=== PATIENT | male | born 1965 | race Caucasian/White ===

== ENCOUNTER → 2019-12-18 09:02 | Outpatient (CLI) | payer BC, SELFPAY ==
--- NOTE | ~2019-12-18 | MR_ITS ---
EXAMINATION: MR lumbar spine wo [facility] EXAM DATE: 12/18/2019 09:48 INDICATION: Low back pain, right hip pain. TECHNIQUE: Multi-sequential, multiplanar MR images of the lumbar spine were obtained without contrast . Sagittal T1, T2, T2 fat saturation images. Axial T2 weighted images. There is no prior study for comparison. FINDINGS: L5 laminectomy defects. There are no suspicious marrow signal abnormalities. There is moder ate loss of the L5-S1 disc heights, mild to moderate loss at L2-3 and L3-4. The conus medullaris term inates at the L1/2 level and has normal signal intensity and morphology. The vertebral bodies are al igned in the AP dimension. Paraspinal soft tissue is unremarkable. Level by level evaluation: T11-12: Disc does not extend beyond the endplate margin. Facet arthropathy: Mild to moderate. Neural foraminal stenosis: Mild bilateral. Central canal stenosis: Mild. T12-L1: Disc does not extend beyond the endplate margin. Facet arthropathy: Mild. Neural foraminal stenosis: No stenosis. Central canal stenosis: No stenosis. L1-L2: Disc does not extend beyond the endplate margin. Facet arthropathy: Mild. Neural foraminal stenosis: Minimal bilateral. Central canal stenosis: No stenosis. L2-L3: There is a mild to moderate diffuse disc bulge. Facet arthropathy: Mild to moderate. Neural foraminal stenosis: Mild to moderate bilateral. Central canal stenosis: Mild. L3-L4: There is a mild to moderate diffuse disc bulge. Facet arthropathy: Moderate . Ligamentum flavum enlargement. Neural foraminal stenosis: Mild to moderate bilateral. Central canal stenosis: Mild to moderate. L4-L5: There is a large diffuse disc bulge superimposed left central protrusion, causing mass effect in the left lateral recess. Facet arthropathy: Severe left, moderate right. Ligamentum flavum enlargement. Neural foraminal stenosis: Moderate bilateral. Central canal stenosis: Moderate to severe. Significant left lateral recess stenosis. L5-S1: There is a mild to moderate diffuse disc bulge asymmetric to the right Facet arthropathy: Severe bilateral. Neural foraminal stenosis: Moderate to severe right, moderate left. Central canal stenosis: Mild to moderate. Posterior decompression, laminectomies.. IMPRESSION: 1. L4-5 spondylosis causing moderate to severe central canal stenosis. 2. Lesser spondylosis above. Reviewed, dictated and finalized at location A.
== END ==
PROVIDERS: PCP Internal Medicine; Visit Provider Physician Assistant Medical
DX: M54.30 Sciatica, unspecified side (principal); M47.814 Spondylosis without myelopathy or radiculopathy, thoracic region
CPT/HCPCS: 72148

== ENCOUNTER 2022-02-13 00:31 | Day surgery (SDC) | payer BC, SELFPAY ==
[2022-01-29 14:29] VITALS: BMI 30.8
--- NOTE | 2022-02-12 17:52 | PM.HPGS ---
History of Present Illness History of Present Illness Consent: Risks, benefits, and alternatives have been discussed and questions answered. Patient agrees to proceed with procedure. Chief complaint: dysphagia, neoplasm screening Narrative: Jamar Alvares is a 56 year old male referred for colon cancer screening . He also has had difficulty swallowing food which seems to get caught in his throat. This began after having a neck fusion 8 years ago. Review of Systems Review of Systems: All systems reviewed & are unremarkable except as noted in HPI and below PMFSH Past Medical History Medical History Arthritis DDD (degenerative disc disease) cervical, s/p fusion 3 levels DDD (degenerative disc disease), lumbosacral Dyslipidemia Dysphagia Encounter for wellness examination in adult Headache History of kidney stones Lateral epicondylitis of right elbow Screening for colon cancer Screening PSA (prostate specific antigen) Tear of left biceps muscle Umbilical hernia Surgical History Surgical History H/O laminectomy History of fusion of cervical spine History of sinus surgery Family History Family History Father Diabetes mellitus Mother Thyroid disorder Social History Social History Smoking status: Never smoker Alcohol intake: current Drinks per week: 1 Alcohol use details: Occasional social drinker Substance use: never Substance use type: does not use Living arrangements: with family Spiritual care concerns: No Meds Home Medications and Allergies Home Medications Medication Instructions Recorded Confirmed Type gabapentin 300 mg capsule 300 mg PO BID 01/18/22 01/29/22 History naproxen 500 mg tablet 500 mg PO BID 01/18/22 01/29/22 History Allergies Allergy/AdvReac Type Severity Reaction Status Date / Time No Known Allergies Allergy Verified 02/13/22 12:10 Exam Resp: Auscultation: clear to auscultation bilaterally Cardio: Rate: regular rate Rhythm: regular rhythm GI: GI Palp: Yes Soft to palpation and No Tenderness to palpation present (GI) Assessment and Plan Assessment and plan (1) Screening for colon cancer: Code(s): Z12.11 - Encounter for screening for malignant neoplasm of colon Status: Acute Assessment and Plan: Colonoscopy with possible biopsy or polypectomy or cautery or injection of substances. (2) Dysphagia: Code(s): R13.10 - Dysphagia, unspecified Status: Acute Assessment and Plan: EGD with possible biopsy or dilatation or cautery.
[2022-02-13 12:12] VITALS: BP 163/99; PULSE 75; RESP 18; TEMP 36.1; O2SAT 95
--- NOTE | 2022-02-13 12:27 | P.PNAN_ITS ---
Anes - Initial Pre Proc Eval Procedure: Operation Date: 02/13/22 13:00 Proposed Procedures p Esophagogastroduodenoscopy & Screening Colonoscopy - Melvin Zepeda MD Date/Time: 02/13/22 12:27 Surgeon: Melvin Zepeda MD Pre Op Diagnosis: dysphagia, neoplasm screening Patient Data Age: 56 Gender: M Height: 1.78 m Weight: 95.8 kg Last Vital Signs Temp 36.1 C L 02/13/22 12:12 Pulse 75 02/13/22 12:12 Resp 18 02/13/22 12:12 BP 163/99 H 02/13/22 12:12 Pulse Ox 95 02/13/22 12:12 O2 Del Method Room Air 02/13/22 12:12 Allergies Allergy/AdvReac Type Severity Reaction Status Date / Time No Known Allergies Allergy Verified 02/13/22 12:10 Home Medications Medication Instructions Recorded Confirmed Type gabapentin 300 mg capsule 300 mg PO BID 01/18/22 01/29/22 History naproxen 500 mg tablet 500 mg PO BID 01/18/22 01/29/22 History Patient hx anesthesia problems: none Family hx anesthesia problems: none Results Review: All pre-operative results and documents have been reviewed as part of the pre- operative evaluation. [facility] Past Medical History Medical History (Updated 02/13/22 @ 14:53 by Shawn Mcleod MD) Arthritis COPD (chronic obstructive pulmonary disease) DDD (degenerative disc disease) cervical, s/p fusion 3 levels DDD (degenerative disc disease), lumbosacral Dyslipidemia Dysphagia Encounter for wellness examination in adult Headache History of kidney stones Lateral epicondylitis of right elbow Screening for colon cancer Screening PSA (prostate specific antigen) Tear of left biceps muscle Umbilical hernia Surgical History Surgical History H/O laminectomy History of fusion of cervical spine History of sinus surgery Family History Family History Father Diabetes mellitus Mother Thyroid disorder Social History Social History Smoking status: Never smoker Alcohol intake: current Drinks per week: 1 Alcohol use details: Occasional social drinker Substance use: never Substance use type: does not use Living arrangements: with family Spiritual care concerns: No Anes - Eval Final PreProcedure Day of Procedure 02/13/22 12:27 Patient weight: obese Heart: regular rate and rhythm Lungs: clear to auscultation Airway: Mallampati scale class II Neurological: alert and oriented Last oral intake: >/= 8 hours ASA classification: III Emergent: no Anesthetic plan: proceed Anesthesia type and monitoring: general GIVS and standard monitoring Other findings: late entry because chart was open by other user Results Review: All pre-operative results and documents have been reviewed as part of the pre- operative evaluation. Informed Consent: The patient's anesthetic plan and its attendant risks and benefits were discussed with the patient/family/POA. Questions were solicited and answers provided to the satisfaction of the patient/family/POA.
[2022-02-13] MEDS: LACTATED RINGERS 1,000 ML 150 ML IV CONT (12:44)
--- NOTE | 2022-02-13 14:06 | SUR.OPER ---
EGD START 1335, END 1342 COLONOSCOPY START 1349, END 1402
[2022-02-13 14:10] VITALS: BP 121/86; PULSE 69; RESP 18; O2SAT 100
[2022-02-13 14:20] VITALS: BP 119/84; PULSE 72; RESP 20; O2SAT 100
[2022-02-13 14:30] VITALS: BP 129/94; PULSE 68; RESP 18; O2SAT 99
== END 2022-02-13 14:39 | disposition home or self-care (01) ==
PROVIDERS: PCP Physician Assistant Medical; Visit Provider Internal Medicine Gastroenterology
PROC: 0DJ08ZZ Inspection of Upper Intestinal Tract, Via Natural or Artificial Opening Endoscopic (ICD-10-PCS; CPT 43235; principal; 2022-02-13 13:00)
DX: Z12.11 Encounter for screening for malignant neoplasm of colon (principal); D12.5 Benign neoplasm of sigmoid colon; K21.00 Gastro-esophageal reflux disease with esophagitis, without bleeding; K29.70 Gastritis, unspecified, without bleeding; K29.80 Duodenitis without bleeding; R13.10 Dysphagia, unspecified
CPT/HCPCS: 45385; 43239; 43450; 87081; 88305; J2704; J7120

== ENCOUNTER 2025-01-11 09:21 | Outpatient (CLI) | payer BC, SELFPAY ==
--- OUTSIDE RECORDS SUMMARY | 2023-08-06 11:00 | XMS_ITS | Continuity of Care Document ---
Author Organization [facility] Address [address] [place] [address] Phone Care Team Providers Care Automatic Bow Maker Machine Tender Name Role Phone Alejandro Singh MD Unavailable Unavailable Procedures Procedure Date INJ SPINE LUM/SAC W/ IMAGING GUIDANCE Ks SURGICAL TRAY LOW OSMOLAR CONTRAST (200 TO 299 MG IODI NE) Triamcinolone Acetonide Injection, 10mg INJ SPINE CERV/THOR W/ IMAGING GUIDANCE Triamcinolone Acetonide Injection, 10mg SURGICAL TRAY LOW OSMOLAR CONTRAST (200 TO 299 MG IODI NE) INJ SPINE CERV/THOR W/ IMAGING GUIDANCE SURGICAL TRAY LOW OSMOLAR CONTRAST (200 TO 299 MG IODI NE) Injection, Triamcinolone Acetonide, 10mg INJ SPINE LUM/SAC W/ IMAGING GUIDANCE Injection, Triamcinolone Acetonide, 10mg SURGICAL TRAY LOW OSMOLAR CONTRAST (200 TO 299 MG IODI NE) INJ SPINE LUM/SAC W/ IMAGING GUIDANCE SURGICAL TRAY LOW OSMOLAR CONTRAST (300 TO 399 MG IODI NE) Injection, Triamcinolone Acetonide, 10mg INJ SPINE CERV/THOR W/ IMAGING GUIDANCE SURGICAL TRAY Ron-28-2022 LOW OSMOLAR CONTRAST (300 TO 399 MG IODI NE) Injection, Triamcinolone Acetonide, 10mg Advance Directives Directive Yes / No Effective Date File Name No Information Encounters Encounter Description Practice Location Reason(s) For Visit Diagnoses Date Provider Providers Copied on Encounter [facility], [address] [facility], [place], [place], [id number], tel:[phone] [facility] No Information Samantha Allen. [address] [place], [place], [id number], [place]. tel:[phone] Referring Provider: Mason Amaral, [address] [place] [address], [place], [place], [facility]. tel:[phone] [facility], [address] [facility], [place], [place], [id number], tel:[phone] [facility] No Information Timi Bianchi. [address] [place], [place], [id number], [place]. tel:[phone] Referring Provider: Mason Amaral, [address] [place] [address], [place], [place], [facility]. tel:[phone] [facility], [address] [facility], [place], [place], [address], tel:[phone] [facility] No Information Radha Craig. [address] [place], [place], [id number], . tel:[phone] Referring Provider: Paramjit Rose DO, [address] [place] [address] [address], [place], [address]. tel:[phone] [facility], [address] [facility], [place], [place], [id number], [place] tel:[phone] [facility] No Information Torsten Bianchi. [address] [place], [place], [id number], [place]. tel:[phone] Referring Provider: Mason Amaral, [address] [place] [address], [place], [place], [facility]. tel:[phone] [facility], [address] [facility], [place], [place], [address], tel:[phone] [facility] No Information Torsten Bianchi. [address] [facility], [place], [place], [address], . tel:[phone] Referring Provider: Mason Amaral, [facility] , [place], [address]. tel:[phone] [facility], [address], [place], [place], [address], tel:[phone] [facility] No Information Radha Craig. [address] [place], [place], [address], . tel:[phone] Referring Provider: Paramjit Rose DO, [address], [place], [address]. tel:[phone] Family History Family Member Type Diagnosis Age At Onset No Information Payers Payer name Insurance type Covered republican ID Alin fritz(s) [facility] ACCESS CHOICE BL [id number] Social History Type Description Quantity Date Captured Comments Sex Male Smoking Status No Information Chief Complaint And Reason For Visit No Information Reason For Referral Reason For Referral No Information History Of Present Illness Encounter Date Complaint History Of Prese nt Illness No Information Functional Status Date Functional Assessmen t No Information Instructions Date Instruction Additional Infor mation No Information Assessments Type Assessment Date No Information Patient Care Teams Name Effective Dates (start - stop) Status Members No Information
--- OUTSIDE RECORDS SUMMARY | 2024-09-07 07:27 | XMS_ITS ---
Author Organization [facility] Address [address] [facility] [address] [place] [address] Care Team Providers Care Fast Food Shift Supervisor Name Role Phone Leanne Asencio Primary Care Provider Unavailab Mason Nguyen Unavailable [phone] REASON FOR VISIT SNN BUE EMG 09-07-24 Encounters Encounter Location Date Provider Diagnosis [facility] [address] [facility] [address] [place] [address] 09/07/2024 Mason Amaral PLAN OF TREATMENT No Information
--- OUTSIDE RECORDS SUMMARY | 2024-09-15 05:29 | XMS_ITS ---
Author Organization [facility] Address [address] [facility] [address] [place] [address] Care Team Providers Care Pit Tanner Name Role Phone Leanne Asencio Primary Care Provider Unavailab Mason Nguyen Unavailable [phone] REASON FOR VISIT arthritis Encounters Encounter Location Date Provider Diagnosis [facility] [address] [facility] [address] [place] [address] 09/15/2024 Mason Amaral PLAN OF TREATMENT No Information
--- OUTSIDE RECORDS SUMMARY | 2024-09-24 07:27 | XMS_ITS ---
Author Organization [facility] Address [address] [facility] [address] [place] [address] Care Team Providers Care Automotive Consultant Name Role Phone Leanne Asencio Primary Care Provider Unavailab Mason Nguyen Unavailable [phone] REASON FOR REFERRAL Reason Bilateral Carpal North cintia Diagnosis 1 Carpal tunnel syndro me (354.0) Referral Organization [facility] Referring Provider First Name Mason Referring Provider Last Name Cristin Referring Provider Speciality Orthopedic Surgery Referred Provider Bryant Gandhi Referred Provider Specialty Plastic and Reconstructive Surgery Referral Priority Routine REASON FOR VISIT Question PROBLEMS Problem Type ICD Code Onset Dates Problem Status W/U Status Risk SNOMED Code Notes Problem Carpal tunnel syndrome (354.0) Active confirmed Carpal tunnel syndrome (35074679) Encounters Encounter Location Date Provider Diagnosis [facility] [address] [facility] [address] [place] [address] 09/24/2024 Mason Amaral PLAN OF TREATMENT Referrals Referral Date Details Bilateral Carpal North cintia, Bryant Gandhi Consultation Request Notes Referral Date Referring Provider Referred Provider Not es 09/24/2024 Mason Amaral Robert Bilateral Carp al Tunnel
--- NOTE | ~2025-01-11 | NM_ITS ---
EXAMINATION: NM stress w perf spect multi DATE: 01/11/2025 11:34 INDICATION: Preoperative cardiovascular exam TECHNIQUE: Rest images were obtained following intravenous administration of 10.7 mCi Tc99m tetrofosmin ([employer]). The patient performed an exercise activity. At peak exercise, 34.2 mCi Tc99m tetrofosmin ([employer]) was administered intravenously, and stress images were obtained. Data was reconstructed into short axis and horizontal and vertical long axis SPECT images. Gated SPECT images were also obtained. COMPARISON: None. FINDINGS: There is normal left ventricular perfusion without definite evidence of reversible or fixed perfusion abnormality to suggest ischemia or infarction. There is normal left ventricular chamber size, wall motion and ejection fraction. Left ventricular ejection fraction measures 57%. IMPRESSION: 1. Normal myocardial perfusion at rest and during stress. 2. Left ventricular ejection fraction measuring 57%. Reviewed, dictated and finalized at location A.
--- NOTE | 2025-01-11 09:32 | EST_ITS ---
Patient Info Name: Jamar Alvares Age: 59 years : 1965 Gender: Male Ht: 70 in Wt: 214 lbs BSA: 2.22 m2 HR: 75 bpm BP: 116 / 78 mmHg Exam Date: 01/11/2025 9:32 AM Patient Status: O Admit Date: 01/11/2025 Exam Type: CA stress test treadmill w NM A nuclear stress test was performed. Staff Referring Physician: Christian Nye DO Attending Provider: Christian Nye DO Exercise Technologist: Zuri Lorenzo Exercise Physician: Christian Nye DO Summary 1. 1. Negative Rafael exercise stress test for ischemic ST changes by ECG criteria. 2. 2. Good functional capacity, achieving 10 METs of workload. 3. 3. Appropriate HR response to exercise. 4. 4. Appropriate HR recovery at 1 minute post exercise. 5. 5. Nuclear scan to follow and will be reported separately. Please correlate with it. 6. 6. Patient informed of the above results. Protocol: Rafael Stress ECG Details Stage: REST Duration (min): 2 min : 2 sec Speed (mph): 0.0 Grade (%): 0 HR (bpm): 77 SBP (mmHg): 116 DBP (mmHg): 78 METS: --- Stage: REST Duration (min): 4 min : 34 sec Speed (mph): 0.0 Grade (%): 0 HR (bpm): 81 SBP (mmHg): 116 DBP (mmHg): 78 METS: --- Stage: STAGE 1 Duration (min): 1 min : 0 sec Speed (mph): 1.7 Grade (%): 10 HR (bpm): 105 SBP (mmHg): 116 DBP (mmHg): 78 METS: --- Stage: STAGE 1 Duration (min): 2 min : 0 sec Speed (mph): 1.7 Grade (%): 10 HR (bpm): 111 SBP (mmHg): 116 DBP (mmHg): 78 METS: --- Stage: STAGE 1 Duration (min): 3 min : 0 sec Speed (mph): 1.7 Grade (%): 10 HR (bpm): 114 SBP (mmHg): 156 DBP (mmHg): 80 METS: --- Stage: STAGE 2 Duration (min): 1 min : 0 sec Speed (mph): 2.5 Grade (%): 12 HR (bpm): 120 SBP (mmHg): 156 DBP (mmHg): 80 METS: --- Stage: STAGE 2 Duration (min): 2 min : 0 sec Speed (mph): 2.5 Grade (%): 12 HR (bpm): 126 SBP (mmHg): 169 DBP (mmHg): 79 METS: --- Stage: STAGE 2 Duration (min): 3 min : 0 sec Speed (mph): 2.5 Grade (%): 12 HR (bpm): 127 SBP (mmHg): 169 DBP (mmHg): 79 METS: --- Stage: STAGE 3 Duration (min): 1 min : 0 sec Speed (mph): 3.4 Grade (%): 14 HR (bpm): 141 SBP (mmHg): 181 DBP (mmHg): 80 METS: --- Stage: STAGE 3 Duration (min): 2 min : 0 sec Speed (mph): 3.4 Grade (%): 14 HR (bpm): 148 SBP (mmHg): 181 DBP (mmHg): 80 METS: --- Stage: STAGE 3 Duration (min): 2 min : 0 sec Speed (mph): 3.4 Grade (%): 14 HR (bpm): 148 SBP (mmHg): 181 DBP (mmHg): 80 METS: --- Stage: RECOVERY Duration (min): 0 min : 59 sec Speed (mph): 0.0 Grade (%): 0 HR (bpm): 130 SBP (mmHg): 166 DBP (mmHg): 80 METS: --- Stage: RECOVERY Duration (min): 1 min : 59 sec Speed (mph): 0.0 Grade (%): 0 HR (bpm): 113 SBP (mmHg): 166 DBP (mmHg): 80 METS: --- Stage: RECOVERY Duration (min): 2 min : 59 sec Speed (mph): 0.0 Grade (%): 0 HR (bpm): 102 SBP (mmHg): 143 DBP (mmHg): 81 METS: --- Stage: RECOVERY Duration (min): 3 min : 59 sec Speed (mph): 0.0 Grade (%): 0 HR (bpm): 94 SBP (mmHg): 143 DBP (mmHg): 81 METS: --- Stage: RECOVERY Duration (min): 4 min : 59 sec Speed (mph): 0.0 Grade (%): 0 HR (bpm): 103 SBP (mmHg): 144 DBP (mmHg): 86 METS: --- Stage: RECOVERY Duration (min): 5 min : 59 sec Speed (mph): 0.0 Grade (%): 0 HR (bpm): 104 SBP (mmHg): 144 DBP (mmHg): 86 METS: --- Stage: RECOVERY Duration (min): 6 min : 59 sec Speed (mph): 0.0 Grade (%): 0 HR (bpm): 103 SBP (mmHg): 144 DBP (mmHg): 85 METS: --- Stage: RECOVERY Duration (min): 7 min : 59 sec Speed (mph): 0.0 Grade (%): 0 HR (bpm): 101 SBP (mmHg): 144 DBP (mmHg): 85 METS: --- Stage: RECOVERY Duration (min): 8 min : 59 sec Speed (mph): 0.0 Grade (%): 0 HR (bpm): 88 SBP (mmHg): 149 DBP (mmHg): 73 METS: --- Stage: RECOVERY Duration (min): 9 min : 59 sec Speed (mph): 0.0 Grade (%): 0 HR (bpm): 96 SBP (mmHg): 149 DBP (mmHg): 73 METS: --- Stage: RECOVERY Duration (min): 10 min : 59 sec Speed (mph): 0.0 Grade (%): 0 HR (bpm): 84 SBP (mmHg): 112 DBP (mmHg): 71 METS: --- Stage: RECOVERY Duration (min): 11 min : 0 sec Speed (mph): 0.0 Grade (%): 0 HR (bpm): 84 SBP (mmHg): 112 DBP (mmHg): 71 METS: --- Rest HR: 81 bpm Peak HR: 149 bpm Rest Sys BP: 116 mmHg Peak Sys BP: 181 mmHg Max Pred HR: 161 bpm % Max Pred HR: 93 % Target HR: 137 bpm Max RPP: 26,969 bpm*mmHg Robbins Score: -2 Termination Reason: Reached target heart rate or workload Cardiac Symptoms: Shortness of breath, Leg pain Max ST Seg Deviation: -2.00 mm Total Time: 8 min : 0 sec Rest Arias BP: 78 mmHg Peak Arias BP: 80 mmHg Angina Score: None Total METS: 10.3 Resting ECG Sinus rhythm, borderline ST-T wave abnormality in inferior leads. Stress ECG No ST changes. Arrhythmias None. Report Signatures
--- OUTSIDE RECORDS SUMMARY | 2025-01-11 09:45 | XMS_ITS | Encounter Summary ---
Author Organization [facility] Address [address] [place] [address] Care Team Providers Care Electric Melt Operator Name Role Phone Karthikeyan Maciel MD Primary Care Provider [phone] Encounter Details Date Type Department Care Team (Late st Contact Info) Description 01/25/2005 Outpatient Historical [facility] MRI DEPT Robe Calvin MD Social History Tobacco Use Types Packs/Day Years Used Date Smoking Tobacco: Never Assessed Sex and Gender Information Value Date Recorded Sex Assigned at Not on file Legal Sex Male 2:56 AM STOCK FITTER Gender Identity Not on file Sexual Orientation Not on file documented as of this encounter Plan of Treatment Not on file documented as of this encounter Visit Diagnoses Not on filedocumented in this encounter Care Teams Electric Melt Operator Relationship Specialty Start Date End Date Karthikeyan Maciel MD [facility] [address] [place] [address] PCP - General 08/24/03 documented as of this encounter
--- OUTSIDE RECORDS SUMMARY | 2025-01-11 09:45 | XMS_ITS | Encounter Summary ---
Author Organization [facility] Address [address] [place] [address] Care Team Providers Care French Lecturer Name Role Phone Karthikeyan Maciel MD Primary Care Provider [phone] Encounter Details Date Type Department Care Team (Latest Contact Info) Description 09/08/2003 Outpatient Historical [facility] Robe Calvin MD SURGERY FOLLOWUP, OTHER (Primary Dx) Social History Tobacco Use Types Packs/Day Years Used Date Smoking Tobacco: Never Assessed Sex and Gender Information Value Date Recorded Sex Assigned at Not on file Legal Sex Male 2:56 AM COOPERER Gender Identity Not on file Sexual Orientation Not on file documented as of this encounter Plan of Treatment Not on file documented as of this encounter Visit Diagnoses Diagnosis Follow-up examination, following other surgery- Primary documented in this encounter Care Teams French Lecturer Relationship Specialty Start Date End Date Karthikeyan Maciel MD [facility] [address] [place] [address] PCP - General 08/24/03 documented as of this encounter
--- OUTSIDE RECORDS SUMMARY | 2025-01-11 09:45 | XMS_ITS | Encounter Summary ---
Author Organization [facility] Address [address] [place] [address] Care Team Providers Care Utility Tractor Operator Name Role Phone Karthikeyan Maciel MD Primary Care Provider [phone] Encounter Details Date Type Department Care Team (Latest Contact Info) Description 07/17/2005 Outpatient Historical [facility] Yuan Abbott MD [address] [place] [address] -x0 (Work) PHYSICAL THERAPY NEC (Primary Dx) Social History Tobacco Use Types Packs/Day Years Used Date Smoking Tobacco: Never Assessed Sex and Gender Information Value Date Recorded Sex Assigned at Not on file Legal Sex Male 2:56 AM NIGHT WAREHOUSE MANAGER Gender Identity Not on file Sexual Orientation Not on file documented as of this encounter Plan of Treatment Not on file documented as of this encounter Visit Diagnoses Diagnosis Other physical therapy- Primary documented in this encounter Care Teams Utility Tractor Operator Relationship Specialty Start Date End Date Karthikeyan Maciel MD [facility] [address] [place] [address] PCP - General 08/24/03 documented as of this encounter
--- OUTSIDE RECORDS SUMMARY | 2025-01-11 09:45 | XMS_ITS | Encounter Summary ---
Author Organization [facility] Address [address] [place] [address] Care Team Providers Care News Gathering Technician Name Role Phone Karthikeyan Maciel MD Primary Care Provider [phone] Encounter Details Date Type Department Care Team (Late st Contact Info) Description 02/27/2005 Outpatient Historical [facility] MRI DEPT Robe Calvin MD LUMBAR DISC DISPLACEMENT (Primary Dx) Social History Tobacco Use Types Packs/Day Years Used Date Smoking Tobacco: Never Assessed Sex and Gender Information Value Date Recorded Sex Assigned at Not on file Legal Sex Male 2:56 AM BACK HANGER Gender Identity Not on file Sexual Orientation Not on file documented as of this encounter Plan of Treatment Not on file documented as of this encounter Visit Diagnoses Diagnosis Displacement of lumbar intervertebral disc without myelopathy- Primary documented in this encounter Care Teams News Gathering Technician Relationship Specialty Start Date End Date Karthikeyan Maciel MD [address] [facility] [address] [place] [address] PCP - General 08/24/03 documented as of this encounter
--- OUTSIDE RECORDS SUMMARY | 2025-01-11 09:45 | XMS_ITS | Encounter Summary ---
Author Organization [facility] Address [address] [place] [address] Care Team Providers Care Nuclear Worker Technician Name Role Phone Karthikeyan Maciel MD Primary Care Provider [phone] Encounter Details Date Type Department Care Team (Late st Contact Info) Description 02/12/2005 Outpatient Historical [facility] MRI DEPT Robe Calvin MD Social History Tobacco Use Types Packs/Day Years Used Date Smoking Tobacco: Never Assessed Sex and Gender Information Value Date Recorded Sex Assigned at Not on file Legal Sex Male 2:56 AM COMMERCIAL PROJECT MANAGER Gender Identity Not on file Sexual Orientation Not on file documented as of this encounter Plan of Treatment Not on file documented as of this encounter Visit Diagnoses Not on filedocumented in this encounter Care Teams Nuclear Worker Technician Relationship Specialty Start Date End Date Karthikeyan Maciel MD [facility]ly [facility], [id number]–[address] [facility] [address] [place] [phone] PCP - General 08/24/03 documented as of this encounter
--- OUTSIDE RECORDS SUMMARY | 2025-01-11 09:45 | XMS_ITS ---
Author Organization [facility] Address [address] [place] [address] Care Team Providers Care Measurement Operator Name Role Phone Leanne Asencio Primary Care Provider [phone] Christian Nye Charley DO Unavailable [phone] Active Problems Problem Noted Date Diagnosed Date Prostate cancer 12/10/2024 Carpal tunnel syndrome 11/30/2024 Rupture of biceps tendon 09/14/2012 Current Treatment and Therapy Plans No current plan information found. Past Treatment and Therapy Plans No past plan information found. Lifetime Dose Tracking * Chemical Lifetime Dose Automatic Entry Manual Entr y Fluoro Time 0.501 minutes 0.501 minutes 0 minutes Air kerma at the reference point (Ka,r) 0.001 mGy 0 .001 mGy 0 mGy
--- OUTSIDE RECORDS SUMMARY | 2025-01-11 09:45 | XMS_ITS | Encounter Summary ---
Author Organization [facility] Address 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
--- OUTSIDE RECORDS SUMMARY | 2025-01-11 09:45 | XMS_ITS | Encounter Summary ---
Author Organization [email or web address] Address 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
--- OUTSIDE RECORDS SUMMARY | 2025-01-11 09:45 | XMS_ITS | Encounter Summary ---
Author Organization [facility] Address 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
--- OUTSIDE RECORDS SUMMARY | 2025-01-11 09:45 | XMS_ITS | Clinical Summary ---
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 Gender Identity Not on file Sexual Orientation Not on file Plan of Treatment Health Maintenance Due Date Last Done Comments DTAP/TDAP/TD VACCINES (1 - Tdap) 1984 HEPATITIS B VACCINES (1 of 3 - 19+ 3-dose series) 12/1984 COLORECTAL SCREENING 2010 Colorectal Cancer Screening 2010 FIT-DNA Q 3 years 2010 FIT/FOBT Q 1 year 2010 Flex Sig/CT Colonography Q 5 years 2010 ZOSTER VACCINE (1 of 2) 08/25/2015 INFLUENZA VACCINE (#1) 2024 Insurance [employer] BLUE ACCESS/TRUE BLUE PPO Care Teams Chief Executive Or Managing Director Relationship Specialty Start Date End Date Karthikeyan Maciel MD [address] [place] [phone] PCP - General 08/24/03
--- OUTSIDE RECORDS SUMMARY | 2025-01-11 09:45 | XMS_ITS | Encounter Summary ---
Author Organization [facility] Address [address] [place] [address] Care Team Providers Care Inbound Call Center Agent Name Role Phone Karthikeyan Maciel MD Primary Care Provider Encounter Details Date Type Department Care Team (Late st Contact Info) Description 12/09/2003 Outpatient Historical [facility] [address] [place] [place] [address] Aleyda Hawk MD [address] [facility] [address] [address] Social History Tobacco Use Types Packs/Day Years Used Date Smoking Tobacco: Never Assessed Sex and Gender Information Value Date Recorded Sex Assigned at Not on file 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
--- OUTSIDE RECORDS SUMMARY | 2025-01-11 09:45 | XMS_ITS | Encounter Summary ---
Author Organization [facility] Address 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
--- OUTSIDE RECORDS SUMMARY | 2025-01-11 09:45 | XMS_ITS | Encounter Summary ---
Author Organization [facility] Address 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
--- OUTSIDE RECORDS SUMMARY | 2025-01-11 09:45 | XMS_ITS | Encounter Summary ---
Author Organization [facility] Address [address] [place] [address] Care Team Providers Care Aggregate Conveyor Operator Name Role Phone Karthikeyan Maciel MD Primary Care Provider [phone] Encounter Details Date Type Department Care Team (Late st Contact Info) Description 09/03/2006 Emergency [facility]ER[facility]Y ROOM [facility] Justinorneetu Mendez, Dani Daniels MD [address] [place] [id number] [place], Authorized P NO ADDRESS ON FILE Cervicalgia (Primary Dx) Social History Tobacco Use Types Packs/Day Years Used Date Smoking Tobacco: Never Assessed Sex and Gender Information Value Date Recorded Sex Assigned at Not on file 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
--- OUTSIDE RECORDS SUMMARY | 2025-01-11 09:45 | XMS_ITS | Encounter Summary ---
Author Organization [facility] Address 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
--- OUTSIDE RECORDS SUMMARY | 2025-01-11 09:45 | XMS_ITS | Encounter Summary ---
Author Organization [facility] Address 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
--- OUTSIDE RECORDS SUMMARY | 2025-01-11 09:45 | XMS_ITS | Clinical Summary ---
Author Organization [facility] Address [facility] [place] [address] Care Team Providers Care Preschool Special Education Teacher Name Role Phone Leanne Asencio Primary Care Provider [phone] Popeye Christian Charley DO Unavailable [phone] Allergies Active Allergy Reactions Criticality Noted Date Comments Mushroom Nausea & Vomiting Low 10/25/2024 Farah mushrooms Rosuvastatin Muscle pain Medium 11/01/2024 Medications tamsulosin (FLOMAX) 0.4 mg extended release capsule Take 1 capsule (0.4 mg total) by mouth daily before breakfast Active lisinopriL (PRINIVIL,ZESTR IL) 40 mg tablet Take 1 tablet (40 mg total) by mouth every morning Active cyanocobalamin (Vitamin B-12) 1,000 mcg tabletIndicatio ns:Prevention of Vitamin B12 Deficiency Take 1 tablet (1,000 mcg total) by mouth every morning Active magnesium oxide 400 mg magnesium capsule Take 1 tablet by mouth every morning Active collagen/biotin /ascorbic acid (COLLAGEN 1500 PLUS C ORAL) Take 1 tablet by mouth every morning Active butalbital-acet aminophen-caffe ine (ESGIC) 50-325-40 mg per tablet Take 1 tablet by mouth every 6 (six) hours as needed for headaches Active aspirin-acetami nophen-caffeine 227-194-33 mg tablet Take 1 tablet by mouth every 6 (six) hours as needed Active rosuvastatin (CRESTOR) 5 mg tablet Take 1 tablet (5 mg total) by mouth daily 12/15/19 25 Discontinu ed(Error) meloxicam (MOBIC) 15 mg tablet Take 1 tablet (15 mg total) by mouth daily with breakfast Take 1 daily with food 30 tablet 12/15/19 25 Discontinu ed(Error) ALPRAZolam (XANAX) 0.5 mg tablet Take 1 tablet (0.5 mg total) by mouth once for 1 dose Take one tablet once prior to MRI 1 tablet 5 12/15/19 25 Discontinu ed(Error) Active Problems Problem Noted Date Diagnosed Date Prostate cancer 12/10/2024 Carpal tunnel syndrome 11/30/2024 Rupture of biceps tendon 09/14/2012 Encounters Date Type Department Care Team Description 12/22/2024 Orders Only [facility] Raffi Cota PA Tendinitis of right rotator cuff 12/21/2024 2:36 PM CDT - 12/21/2024 11:59 PM CDT Hospital Encounter [facility] [address] [place] [phone] Dani Rucker MD Primary osteoarthritis of right shoulder (Primary Dx); Tendinitis of right rotator cuff Discharge Disposition: Discharge to home or self care 12/14/2024 7:15 AM CDT Pre-Admission Testing [facility] Pre Anesthesia Testing [address] [place] [phone] Preoperative testing (Primary Dx); Prostate cancer (HCC) 12/14/2024 Telephone [facility] Medicine Orthopaedic Surgery [address] [place] [address] [address] [place] [phone] Clarissa Porras CMA Scheduling Appointments 12/14/2024 Telephone [facility] Pre Anesthesia Testing [address] [place] [phone] Bhakti Harrell RN 12/13/2024 11:59 PM CDT Anesthesia Event [facility] Operating Room [address] [place] [phone] Megan Millard PA 12/13/2024 Telephone [facility] Medicine Orthopaedic Surgery [address] [place] [address] [address] [place] [phone] Clarissa Porras CMA Scheduling Appointments 12/13/2024 Orders Only [facility] [address] [facility] 2nd Floor [address] [place] [address] Raffi Cota PA Tendinitis of right rotator cuff (Primary Dx) 12/10/2024 Documentation [facility] [id number] [place] [address] 2nd Floor [address] [place] [address] Raffi Cota PA 12/08/2024 Orders Only [facility] Scanning, Provider 12/06/2024 Telephone [facility] [address] [place] [address] 2nd Floor [address] [place] [address] Angela Anguiano RMA 11/30/2024 9:27 AM CDT - 11/30/2024 11:59 PM CDT Hospital Encounter [facility] Rad[facility] [address] [place] [address] Discharge Disposition: Discharge to home or self care 11/30/2024 9:26 AM CDT - 11/30/2024 11:59 PM CDT Hospital Encounter [facility] [address] [place] [address] Discharge Disposition: Discharge to home or self care 11/30/2024 9:00 AM CDT Office Visit [facility] [address] [place] [address] 2nd [address] [place] [address] Raffi Cota PA Medial epicondylitis of right elbow (Primary Dx); Arthritis of right elbow; Tendinitis of right rotator cuff 10/25/2024 8:00 AM CDT Office Visit [facility] [address] [place] [address] [address]nd [address] [place] [address] Raffi Cota PA Arthritis of right elbow (Primary Dx); Right elbow pain; Right shoulder pain, unspecified chronicity from Last 3 Months Surgical History Surgery Date Site/Laterality Comments PROSTATE BIOPSY ANTERIOR FUSION CERVICAL SPINE LUMBAR FUSION HERNIA REPAIR FLUORO GUIDED INJECTION SHOULDER RIGHT 12/21/2024 [facility] Medical History Medical History Date Comments Prostate cancer (HCC) Social History Tobacco Use Types Packs/Day Years Used Date Smoking Tobacco: Never Tobacco Cessation:Counseling Given: Not Answered AUDIT-C Answer Date Recorded Q1: How often do you have a drink containing alc ohol? 2-4 times a month 12/14/2024 Q2: How many drinks containi ng alcohol do you have on a typical day when you are drinking? 1 or 2 12/14/2024 Q3: How often do you have si x or more drinks on one occasion? 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 Gender Identity Not on file Sexual Orientation Not on file Obstetrics History Last Filed Vital Signs Vital Sign Reading Time Taken Comments Blood Pressure 156/90 12/21/2024 3:28 PM CDT Pulse 74 12/21/2024 3:28 PM CDT Temperature - - Respiratory Rate 16 12/21/2024 3:28 PM CDT Oxygen Saturation 95% 12/14/2024 7:36 AM CDT Inhaled Oxygen Concentration - - Weight 99.3 kg (219 lb) 12/14/2024 7:36 AM CDT Height 177.8 cm (5' 10) 12/14/2024 7:36 AM CDT Body Mass Index 31.42 12/14/2024 7:36 AM CDT Plan of Treatment Health Maintenance Due Date Last Done Comments Colon Cancer Screening-Colonoscopy 1965 Depression Screening 1965 Hepatitis C Screening 1965 Prostate Cancer Screening-PSA 1965 DTaP/Tdap/Td Vaccine (1 - Tdap) 1976 Hepatitis B Screening 08/25/1983 Regular Well Visit/Exam 18-64 08/25/1983 Zoster Vaccine (1 of 2) 08/25/2015 Covid-19 Vaccine (3 - 2023-2 5 season) 2024 02/13/2021, 01/23/2021 Influenza Vaccine (#1) 2025 Pneumococcal vaccine <65 Aged Out No longer eligible based on patient's age to complete this topic Procedures Procedure Name Priority Date/Time Associated Diagnosis Comments MRI SHOULDER RIGHT WO CONTRAST Schedule Routine, Read Routine (OP Routine) 01/04/2025 10:26 AM CDT Tendinitis of right rotator cuff FLUORO GUIDED INJECTION SHOULDER RIGHT Schedule Routine, Read Routine (OP Routine) 12/21/2024 3:22 PM CDT Tendinitis of right rotator cuff URINALYSIS AND REFLEX TO MICROSCOPIC AND CULTURE Routine 12/14/2024 9:42 AM CDT Prostate cancer (HCC) EGFR Routine 12/14/2024 9:06 AM CDT Preoperative testing DIFFERENTIAL AUTO Routine 12/14/2024 9:0 6 AM CDT Preoperative testing BASIC METABOLIC PANEL Routine 12/14/2024 9:06 AM CDT Preoperative testing CBC WITH AUTO DIFFERENTIAL Routine 12/14/2024 9:06 AM CDT Preoperative testing TYPE AND SCREEN Routine 12/14/2024 9:06 AM CDT Preoperative testing HEMOGLOBIN A1C Routine 12/14/2024 9:06 AM CDT Preoperative testing ECG 12-LEAD Routine 12/14/2024 8:37 AM CDT Preoperative testing SCAN - RADIOLOGY/IMAGING 12/08/2024 2:29 PM CDT XR TRANSFER OF OUTSIDE FILMS Routine 11/30/2024 9:27 AM CDT XR TRANSFER OF OUTSIDE FILMS Routine 11/30/2024 9:26 AM CDT HI INJECTION 1 TENDON SHEATH/LIGAMENT APONEUROSIS Routine 11/30/2024 9:00 AM CDT Medial epicondylitis of right elbow from Last 3 Months Results * MRI Shoulder Right WO Contrast (01/04/2025 10:26 AM CDT) Anatomical Region Laterality Modality Upper Extremities Right Magnetic Reson ance Raffi MYRICK IMBrissa MRI PROCEDURES Final Result * FL Fluoro Guided Injection Shoulder Right (GLENOHUMERAL JOINT) (12/21/2024 3:22 PM CDT) Narrative [facility] - 12/21/2024 3:22 PM CDT The images from this study are not interpreted by Radiology. Please refer to the physician's procedure / OR operative note. Raffi MYRICK IMG FLUOROSCOPY PROCEDURES Niki l Result Performing Organization Address City/[facility]/ZIP Co de Phone Number [email or web address] * Urinalysis reflex to microscopic and culture Urine, bladder (12/14/2024 9:42 AM CDT) Color, ur Yellow Yellow Clarity, ur Clear Clear [facility] Specific gravity, ur 1.027 1.003 - 1.030 [facility] pH, urine 6.5 [facility] Comment: Interpretive Data U rine pH is affected by diet, medications, systemic acid-base disturbances, and renal tubular function. pH may affect urinary stone formation. For example, urine pH below 6.0 may help reduce the tendency for calcium phosphate stones and pH greater than 6.0 may reduce the tendency for uric acid stone formation. Source: [facility] Current Interpretive Data was last revised on 2017 Protein, ur ql Negative Negative [facility] Glucose, ur ql Negative Negative [facility] Ketones, ur Negative Negative [facility] Bilirubin, ur Negative Negative [facility] Blood, ur Negative Negative [facility] Urobilinogen, ur <2.0 <2.0 mg/dL [facility] Nitrite, ur Negative Negative [facility] Leukocyte esterase, ur Negative Negative [facility] UA reflex comment Reflex conditions for microscopic UA and culture not met. [facility] Urine, bladder 12/14/2024 9: 42 AM CDT 12/14/2024 9:42 AM CDT Gabino Khan MD LAB MICROBIOLOGY - GENERAL ORD ERABLES Final Result Performing Organization Address City/[facility]/ZIP Co de Phone Number [facility] [address] [place] [address] * eGFR (12/14/2024 9:06 AM CDT) [facility] eGFR 88 >=60 mL/min/1. 73 m2 Comment: Interpretive Data Reference Interval Normal >/= 90 mL/min/1.73m2 Mildly decreased* 60 - 89 mL/min/1.73m2 Mildly to moderately decreased 45 - 59 mL/min/1.73m2 Moderately to severely decreased 30 - 44 mL/min/1.73m2 Severely decreased 15 - 29 mL/min/1.73m2 Kidney Failure < 15 mL/min/1.73m2 *Relative to young adult level Estimated glomerular filtration rate is determined by the 2020 CKD-EPI equation recommended by the National Kidney Foundation (A Unifying Approach to GFR Estimation: Recommendations of the NKF-ASK Task Force on Reassessing the Inclusion of Race in Diagnosing Kidney Disease, JASN 2020). The CKD-EPI equation should not be used for patients with unstable renal function and has not been validated in children and those over 70. Current interpretive data was last reviewed 2021. Blood 12/14/2024 9:06 AM CDT 12/14/2024 9:06 AM CDT us Noelle Eduardo NP LAB BLOOD ORDERABLES [facility] Result [facility] [address] Department [place] [address] * Differential, auto (12/14/2024 9:06 AM CDT) [facility] Neutrophil abs 5.67 1.50 - 6.50 K/cumm Imm gran abs 0.06 0.00 - 0.10 K/cumm [facility] Lymphocyte abs 2.17 0.80 - 3.30 K/cumm [facility] Monocyte abs 0.76 0.20 - 0.80 K/cumm [facility] Eosinophil abs 0.06 0.00 - 0.50 K/cumm [facility] Basophil abs 0.05 0.00 - 0.10 K/cumm [facility] Neutrophil pct 64.6 % [facility] Comment: Interpretive Data Percent cell count reference ranges are not reported, since discordance with absolute values may lead to misinterpretation of CBC data. Current Interpretive Data was last revised on 2017. Imm gran pct 0.7 % [facility] Comment: Interpretive Data Percent cell count reference ranges are not reported, since discordance with absolute values may lead to misinterpretation of CBC data. Current Interpretive Data was last revised on 2017. Lymphocyte pct 24.7 % [facility] Comment: Interpretive Data Percent cell count reference ranges are not reported, since discordance with absolute values may lead to misinterpretation of CBC data. Current Interpretive Data was last revised on 2017. Monocyte pct 8.7 % [facility] Comment: Interpretive Data Percent cell count reference ranges are not reported, since discordance with absolute values may lead to misinterpretation of CBC data. Current Interpretive Data was last revised on 2017. Eosinophil pct 0.7 % [facility] Comment: Interpretive Data Percent cell count reference ranges are not reported, since discordance with absolute values may lead to misinterpretation of CBC data. Current Interpretive Data was last revised on 2017. Basophil pct 0.6 % [facility] Comment: Interpretive Data Percent cell count reference ranges are not reported, since discordance with absolute values may lead to misinterpretation of CBC data. Current Interpretive Data was last revised on 2017. Blood 12/14/2024 9:06 AM CDT 12/14/2024 9:06 AM CDT us Noelle Eduardo NP LAB BLOOD ORDERABLES nal Result [facility] [address] Department [place] [address] * CBC with auto differential (12/14/2024 9:06 AM CDT) WBC 8.77 3.80 - 9.90 K/cumm Hgb 14.5 13.0 - 17.5 g/dL [facility] Hct 44.7 38.9 - 50.3 % [facility] Plt 279 150 - 400 K/cumm [facility] MPV 10.9 9.1 - 12.3 fL [facility] RBC 4.80 4.30 - 5.80 M/cumm [facility] MCV 93.1 81.3 - 96.4 fL [facility] MCH 30.2 27.1 - 33.3 pg [facility] MCHC 32.4 32.3 - 35.7 g/dL [facility] RDW CV 12.8 11.1 - 14.9 % [facility] RDW SD 44.1 35.7 - 48.1 fL [facility] NRBC abs 0.00 0.00 - 0.01 K/cumm [facility] Blood 12/14/2024 9:06 AM CDT 12/14/2024 9:06 AM CDT Noelle Eduardo NP LAB BLOOD ORDERABLES Fi nal Result Performing Organization Address [facility] Co de Phone Number [facility] [address] [place] [address] * Type and screen (12/14/2024 9:06 AM CDT) Pathologist [facility] Cameron, indirect Negative ABO Rh O Positive [facility] Blood 12/14/2024 9:06 AM CDT 12/14/2024 9:15 AM CDT Narrative [facility] - 12/14/2024 9:54 AM CDT Is this test being ordered in advance for a procedure?->Yes Expected date of procedure:->01/03/25 Has the patient been transfused in the past 3 months?->No Noelle Eduardo NP LAB BLOOD BANK TEST ORD ERABLES Final Result [facility] [address] [facility] [place] [address] * (ABNORMAL) Hemoglobin A1c (12/14/2024 9:06 AM CDT) Hgb A1C 5.8(H) 4.0 - 5.6 % Estimated Average Glucose 120 mg/dL [facility] Comment: The ADA recommends reporting an estimated Average Glucose (eAG) with all Hemoglobin A1c results using the equation derived from a study of 507 normal and diabetic adults. Minority populations were underrepresented and children were not included. (Diabetes Care 31:1001-4503, 2008). The eAG is not equivalent to a fasting glucose. Blood 12/14/2024 9:06 AM CDT 12/14/2024 9:06 AM CDT us Noelle Eduardo NP LAB BLOOD ORDERABLES nal Result [facility] [address] Department [place] [address] * Basic metabolic panel (12/14/2024 9:06 AM CDT) Sodium 140 135 - 145 mmol/L Potassium, pl 4.7 3.3 - 4.9 mmol/L [facility] Chloride 103 97 - 110 mmol/L [facility] CO2 24 22 - 32 mmol/L [facility] Anion gap 13 2 - 15 mmol/L [facility] BUN 23 6 - 25 mg/dL [facility] Creatinine 0.99 0.80 - 1.30 mg/dL [facility] Glucose 95 70 - 199 mg/dL [facility] Comment: Interpretive Data Fasting glucose >/= 126 mg/dl is diagnostic for diabetes. Fasting is defined as no caloric intake for at least 8 hours. Fasting glucose between 100 mg/dl to 125 mg/dl is diagnostic of prediabetes. In a patient with classic symptoms of hyperglycemia or hyperglycemic crisis, a random glucose >/= 200 mg/dl is diagnostic for diabetes. In the absence of unequivocal hyperglycemia, results should be confirmed by repeat testing. The classification and Diagnosis of Diabetes Diabetes Care 202; 46: S19-S40. Current interpretive data was last revised 2022. Calcium 9.2 8.5 - 10.3 mg/dL [facility] Blood 12/14/2024 9:06 AM CDT 12/14/2024 9:06 AM CDT Noelle Eduardo DEPUTY CONTROLLER LAB BLOOD ORDERABLES Fi nal Result Performing Organization Address [facility] Phone Number [facility] [address] Department [place] [address] * ECG 12 lead (12/14/2024 8:37 AM CDT) 12/14/2024 8:37 AM CDT Narrative [facility] - 12/14/2024 9:35 AM CDT Vent Rate: 71 bpm RR Interval: 834 msec HI Interval: 208 msec QRS Duration: 107 msec QT Interval: 380 msec QTC Interval: 403 msec P-R-T Gillespie: 55 - 26 - 3 degrees IMPRESSION: SINUS RHYTHM NORMAL ECG Electronically Signed By: Allen Dukes MD PhD Noelle Eduardo DEPUTY CONTROLLER ECG ORDERABLES Final R esult Performing Organization Address [facility] Phone Number [facility] * SCAN - RADIOLOGY/IMAGING (12/08/2024 2:29 PM CDT) Anatomical Region Laterality Modality Other Provider Scanning Final Result * XR Outside Reference (11/30/2024 9:27 AM CDT) Impressions [facility] - 11/30/2024 9:27 AM CDT These images are for Reference purposes only and have not been reviewed by [facility] Radiology. There will be no report generated by a [facility] Radiologist. Narrative [facility] - 11/30/2024 9:27 AM CDT EXAMINATION: Images For Reference Purposes Only Raffi MYRICK IMG XR PROCEDURES Final Result Performing Organization Address [facility] de Phone Number [facility] * XR Outside Reference (11/30/2024 9:26 AM CDT) Impressions [facility] - 11/30/2024 9:26 AM CDT These images are for Reference purposes only and have not been reviewed by [facility] Radiology. There will be no report generated by a [facility] Radiologist. Narrative [facility] - 11/30/2024 9:26 AM CDT EXAMINATION: Images For Reference Purposes Only Raffi MYRICK IMG XR PROCEDURES Final Result [facility] * HI INJECTION 1 TENDON SHEATH/LIGAMENT APONEUROSIS (11/30/2024 9:00 AM CDT) Narrative Raffi Cota PA - 11/30/2024 9:00 AM CDT Raffi Cota PA 11/30/2024 10:09 AM Epicondylitis injection: R elbow Performed by: Raffi Cota PA Authorized by: Raffi Cota PA Epicondylitis Injection: Consent Given by: Patient Timeout: prior to procedure the correct patient, procedure, and site was verified Verbal consent obtained?: Yes Supporting Documentation: Indications: Pain Procedure Details: Condition: medial epicondylitis Site: R elbow Prep: patient was prepped using a clean technique (Betadine and alcohol) Needle Size: 25 G Approach: Medial Ultrasound guidance: No Medications: 1 mL BUPivacaine HCl 0.25 % (2.5 mg/mL); 40 mg methylPREDNISolone acetate 80 mg/mL Patient tolerance: Patient tolerated the procedure well with no immediate complications Raffi MYRICK IN CLINIC/BEDSIDE ORDERABLES Fi nal Result from Last 3 Months Insurance [facility] ACCESS CHOICE [facility] ACCESS CHOICE Care Teams Preschool Special Education Teacher Relationship Specialty Start Date End Date Leanne Asencio PA [facility] [place] [address] PCP - General Physician Oncologist 10/25/24 Christian Nye DO [address] [facility] [address] [place], [place] [id number] Referring Physician Internal Medicine 12/24/24
--- OUTSIDE RECORDS SUMMARY | 2025-01-11 09:45 | XMS_ITS | Encounter Summary ---
Author Organization [facility] Address 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
--- OUTSIDE RECORDS SUMMARY | 2025-01-11 09:45 | XMS_ITS | Encounter Summary ---
Author Organization [facility] Address 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
--- OUTSIDE RECORDS SUMMARY | 2025-01-11 09:45 | XMS_ITS | Encounter Summary ---
Author Organization [facility] Address [address] [place] [address] Phone Care Team Providers Care Electrician Aircraft Name Role Phone Leanne Asencio Primary Care Provider [phone] Christian Nye DO Unavailable [phone] Encounter Details Date Type Department Care Team (Latest Contact Info) Description 12/08/2024 Orders Only [facility] [employer] [facility] Scanning, Provider Social History Tobacco Use Types Packs/Day Years Used Date Smoking Tobacco: Never Sex and Gender Information Value Date Recorded Sex Assigned at Not on file 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 Gender Identity Not on file Sexual Orientation Not on file documented as of this encounter Plan of Treatment Not on file documented as of this encounter Procedures Procedure Name Priority Date/Time Associated Diagnosis Comments SCAN - RADIOLOGY/IMAGING 12/08/2024 2:29 PM CDT documented in this encounter Results * SCAN - RADIOLOGY/IMAGING (12/08/2024 2:29 PM CDT) Anatomical Region Laterality Modality Other us Provider Scanning Final Result documented in this encounter Visit Diagnoses Not on filedocumented in this encounter Care Teams Electrician Aircraft Relationship Specialty Start Date End Date Leanne Asencio PA [address] [place] [address] PCP - General Physician Structural Manager 10/25/24 Christian Nye DO [address] [place] [address] [address] [place] [address] Referring Physician Internal Medicine 12/24/24 documented as of this encounter
--- OUTSIDE RECORDS SUMMARY | 2025-01-11 09:45 | XMS_ITS | Encounter Summary ---
Author Organization [facility] Address [address] [place] [address] Care Team Providers Care Printing Sign Machine Operator Name Role Phone Karthikeyan Maciel MD Primary Care Provider [phone] Encounter Details Date Type Department Care Team (Late st Contact Info) Description 08/18/2005 Outpatient Historical [facility] Yuan Abbott MD 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
--- OUTSIDE RECORDS SUMMARY | 2025-01-11 09:45 | XMS_ITS | Encounter Summary ---
Author Organization [facility] Address 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 Gender Identity Not on file Sexual Orientation Not on file documented as of this encounter Plan of Treatment Not on file documented as of this encounter Procedures Procedure Name Priority Date/Time Associated Diagnosis Comments HEMOGLOBIN AND HEMATOCRIT Routine 05/21/2005 9:40 AM BOILERMAKER APPRENTICE BASIC METABOLIC PANEL Routine 05/21/2005 9:40 AM BOILERMAKER APPRENTICE documented in this encounter Results * (ABNORMAL) BASIC METABOLIC PANEL (05/21/2005 9:40 AM BOILERMAKER APPRENTICE) GLUCOSE 95 65 - 109 mg/dL INTERFACE SYSTEM CREATININE 1.1 0.5 - 1.3 mg/dL INTERFACE SYSTEM CALCIUM 9.2 8.6 - 10.2 mg/dL INTERFACE SYSTEM BUN 26(H) 6 - 20 mg/dL INTERFACE SYSTEM SODIUM 140 135 - 145 mmol/L INTERFACE SYSTEM POTASSIUM 4.1 3.5 - 4.9 mmol/L INTERFACE SYSTEM CHLORIDE 105 96 - 108 mmol/L INTERFACE SYSTEM CO2 29 22 - 30 mmol/L INTERFACE SYSTEM 05/21/2005 9:40 AM BOILERMAKER APPRENTICE us Yuan Abbott MD CHEMISTRY ORDERABLES Final Re sult INTERFACE SYSTEM Refer to clinic/hospital department * HEMOGLOBIN AND HEMATOCRIT (05/21/2005 9:40 AM BOILERMAKER APPRENTICE) HEMOGLOBIN 14.5 13.6 - 16.5 g/dL INTERFACE SYSTEM HEMATOCRIT 43.3 40.0 - 48.0 % INTERFACE SYSTEM 05/21/2005 9:40 AM BOILERMAKER APPRENTICE us Yuan Abbott MD HEMATOLOGY ORDERABLES Final R esult Performing Organization Address City/[facility]/ZIP Co de Phone Number INTERFACE SYSTEM Refer to clinic/hospital department documented in this encounter Visit Diagnoses Diagnosis Displacement of lumbar intervertebral disc without myelopathy- Primary documented in this encounter Care Teams Open 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
--- OUTSIDE RECORDS SUMMARY | 2025-01-11 09:45 | XMS_ITS | Encounter Summary ---
Author Organization [facility] Address [address] [place] [address] Care Team Providers Care Market Development Trainer Name Role Phone Karthikeyan Molina MD Primary Care Provider [phone] Encounter Details Date Type Department Care Team (Late st Contact Info) Description 05/24/2008 Outpatient Historical [facility] Er, Authorized P NO ADDRESS ON FILE Viviana Small MD [address] [place] [id number] Merry Najera MD [address] [place] [address] Dizziness and Giddiness Social History Tobacco Use Types Packs/Day Years Used Date Smoking Tobacco: Never Assessed Sex and Gender Information Value Date Recorded Sex Assigned at Not on file Legal Sex Male 2:56 AM SENSOR TECHNICIAN Gender Identity Not on file Sexual Orientation Not on file documented as of this encounter Plan of Treatment Not on file documented as of this encounter Procedures Procedure Name Priority Date/Time Associated Diagnosis Comments TROPONIN Routine 05/25/2008 10:04 PM SENSOR TECHNICIAN US CAROTID DOPPLER Routine 05/25/2008 7: 01 PM SENSOR TECHNICIAN ECHO COMPLETE Routine 05/25/2008 5:37 PM SENSOR TECHNICIAN TROPONIN Routine 05/25/2008 4:00 PM SENSOR TECHNICIAN TROPONIN Routine 05/25/2008 11:35 AM SENSOR TECHNICIAN URINALYSIS WITH MICROSCOPIC Routine 05/25/2008 9:45 AM SENSOR TECHNICIAN URINE CULTURE Routine 05/25/2008 9:45 AM SENSOR TECHNICIAN BLOOD CULTURE Stat 05/25/2008 6:49 AM SENSOR TECHNICIAN BLOOD CULTURE Timed Study 05/25/2008 6:37 AM SENSOR TECHNICIAN CBC WITH DIFFERENTIAL Routine 05/25/2008 4:50 AM SENSOR TECHNICIAN BASIC METABOLIC PANEL Routine 05/25/2008 4:[address] HEAD WO CONTRAST Routine 05/24/2008 1 0:02 PM SENSOR TECHNICIAN XR CHEST PA OR AP 1 VW Routine 05/24/2008 9:34 PM SENSOR TECHNICIAN TROPONIN (W/REFLEX CKMB/CK) Stat 05/24/2008 9:32 PM SENSOR TECHNICIAN CBC WITH DIFFERENTIAL Stat 05/24/2008 9:32 PM SENSOR TECHNICIAN COMPREHENSIVE METABOLIC PANEL Stat 05/24/2008 9:32 PM SENSOR TECHNICIAN POC GLUCOSE Routine 05/24/2008 6:17 PM SENSOR TECHNICIAN documented in this encounter Results * TROPONIN (05/25/2008 10:04 PM SENSOR TECHNICIAN) TROPONIN T <0.01 <=0.03 ng/mL [facility] TROPONIN T INTERP Negative [facility] Blood specimen (specimen) 05/25/2008 10:04 PM SENSOR TECHNICIAN 05/25/2008 10:07 PM SENSOR TECHNICIAN Narrative INTERFACE SYSTEM - 05/25/2008 10:29 PM SENSOR TECHNICIAN x 2 times. Merry Najera MD CHEMISTRY ORDERABLES Edited INTERFACE SYSTEM Refer to clinic/hospital department [facility] CLIA# [id number] [address] [facility] [address] [place] [id number] * US CAROTID DOPPLER (05/25/2008 7:01 PM SENSOR TECHNICIAN) Anatomical Region Laterality Modality Neck Other Narrative 05/25/2008 7:01 PM SENSOR TECHNICIAN [facility] [address] [place] [address] [email or web address] Carotid Duplex Study Patient: Chuck Don Study ID: Carotid Gender: M : 1965 Age: 42 years Race: 1 Room: Bed: Height: Study Date: May 25, 2008 Patient status: Inpatient Weight: Access. #: [id number] POC: Primer Supervisor: Leilani Ordering: Richard Consulting: NormalipDonnieHYSICIROSA MARIA Attending MD: Errol Admitting MD: Richard SUMMARY: The left and right carotid Doppler velocities and ratios are within normal limits, excluding significant stenosis. Bilateral vertebral flow is antegrade. VELOCITY IMPRESSIONS The left and right carotid Doppler velocities and ratios are within normal limits, excluding significant stenosis. Bilateral vertebral flow is antegrade. COMPARISONS No previous study was available for comparison. HISTORY AND INDICATIONS: INDICATIONS Dizziness HISTORY Risk factors: no cigarette use ever, no diabetes, positive for hypercholesterolemia, and no hypertension.No history of coronary artery disease. BASELINE PHYSICAL EXAMINATION Baseline brachial blood pressure:. B/P not taken STUDY INFORMATION: PROCEDURE PERFORMED A duplex study of the right and left carotid systems was performed with B-Mode imaging and spectral analysis. PROCEDURE DETAIL This was an inpatient procedure. DOPPLER VELOCITIES CCA proximal R peak systolic: 67 cm/sec R end diastolic: 19 cm/sec L peak systolic: 80 cm/sec L end diastolic: 17 cm/sec CCA distal R peak systolic: 78 cm/sec R end diastolic: 22 cm/sec L peak systolic: 71 cm/sec L end diastolic: 25 cm/sec ICA proximal R peak systolic: 78 cm/sec R end diastolic: 25 cm/sec L peak systolic: 73 cm/sec L end diastolic: 19 cm/sec ICA distal R peak systolic: 71 cm/sec R end diastolic: 28 cm/sec L peak systolic: 81 cm/sec L end diastolic: 36 cm/sec ECA R peak systolic: 89 cm/sec R end diastolic: -- L peak systolic: 93 cm/sec L end diastolic: -- Vertebral artery R peak systolic: 33 cm/sec R end diastolic: -- L peak systolic: 46 cm/sec L end diastolic: -- Prepared and Electronically Authenticated Kade Foote MD Confirmed May 25, 2008 18:08:30 Procedure Note Provider, Historical - 05/25/2008 [place] [address] [place], [place] [address]: [email or web address] Carotid Duplex Study Patient: Chuck Don Study ID: Carotid Gender: Alisia : 1965 Age: 42 years Race: 1 Room: Bed: Height: Study Date: May 25, 2008 Patient status: Inpatient Weight: Access. #: [id number] POC: Primer Supervisor: Leilani Ordering: Richard Consulting: FranklynHYSICIROSA MARIA Attending MD: Errol Admitting MD: Richard SUMMARY: The left and right carotid Doppler velocities and ratios are withinnormal limits, excluding significant stenosis. Bilateral vertebral flow is antegrade. VELOCITY IMPRESSIONS The left and right carotid Doppler velocities and ratios are withinnormal limits, excluding significant stenosis. Bilateral vertebral flow is antegrade. COMPARISONS No previous study was available for comparison. HISTORY AND INDICATIONS: INDICATIONS Dizziness HISTORY Risk factors: no cigarette use ever, no diabetes, positive for hypercholesterolemia, and no hypertension.No history of coronary artery disease. BASELINE PHYSICAL EXAMINATION Baseline brachial blood pressure:. B/P not taken STUDY INFORMATION: PROCEDURE PERFORMED A duplex study of the right and left carotid systems was performed with B-Mode imaging and spectral analysis. PROCEDURE DETAIL This was an inpatient procedure. DOPPLER VELOCITIES CCA proximal R peak systolic: 67 cm/sec R end diastolic: 19 cm/sec L peak systolic: 80 cm/sec L end diastolic: 17 cm/sec CCA distal R peak systolic: 78 cm/sec R end diastolic: 22 cm/sec L peak systolic: 71 cm/sec L end diastolic: 25 cm/sec ICA proximal R peak systolic: 78 cm/sec R end diastolic: 25 cm/sec L peak systolic: 73 cm/sec L end diastolic: 19 cm/sec ICA distal R peak systolic: 71 cm/sec R end diastolic: 28 cm/sec L peak systolic: 81 cm/sec L end diastolic: 36 cm/sec ECA R peak systolic: 89 cm/sec R end diastolic: -- L peak systolic: 93 cm/sec L end diastolic: -- Vertebral artery R peak systolic: 33 cm/sec R end diastolic: -- L peak systolic: 46 cm/sec L end diastolic: -- Prepared and Electronically Authenticated Kade Foote MD Confirmed May 25, 2008 18:08:30 us Viviana Small MD ORDERABLES Final Result * ECHOCARDIOGRAM COMPLETE (05/25/2008 5:37 PM SENSOR TECHNICIAN) Narrative INTERFACE SYSTEM - 05/25/2008 5:37 PM SENSOR TECHNICIAN [place] [address] [address] [place] [id number] [email or web address] Transthoracic Echocardiogram Patient: Chuck Don Study ID: ADULT ECHO FULL Gender: M : 1965 Age: 42 years Race: 1 Room: Bed: Height: Study Date: May 25, 2008 Patient status: Inpatient Weight: Access. #: [id number] POC: Ordering: Richard Consulting: NormalipLeePHYSICIROSA MARIA Attending MD: Errol Admitting MD: Richard Indications and History: INDICATIONS: Evaluate for suspected cardiac source of embolism. HISTORY: Recent transient ischemic attack. Procedure data: PROCEDURE INFORMATION: A transthoracic complete 2D study was performed. Additional evaluation included M-mode, complete spectral Doppler, and color Doppler. Study Conclusions: SUMMARY: - Overall left ventricular systolic function was normal. Left ventricular ejection fraction was estimated to be 60 %. - Left atrial size was normal. - Right ventricular size was normal. Right ventricular systolic function was normal. - Estimated peak pulmonary artery systolic pressure could not be definitively determined, but appeared to be 30 mmHg. - No intracardiac shunt was detected by contrast study with agitated saline. - There were no valvular abnormalities. Doppler examination was normal. Cardiac anatomy: LEFT VENTRICLE: Left ventricular size was normal. Overall left ventricular systolic function was normal. Left ventricular ejection fraction was estimated to be 60 %. There were no left ventricular regional wall motion abnormalities. Left ventricular wall thickness was normal. Doppler interpretation(s): Diastolic dysfunction stage 2, psuedonormal pattern. AORTIC VALVE: The aortic valve was trileaflet. Aortic valve thickness was normal. There was normal aortic valve leaflet excursion. Doppler interpretation(s): Transaortic velocity was within the normal range. There was no evidence for aortic valve stenosis. There was no significant aortic valvular regurgitation. AORTA: The aortic root was normal in size. MITRAL VALVE: Mitral valve structure was normal. There was normal mitral valve leaflet excursion. Doppler interpretation(s): The transmitral velocity was within the normal range. There was no evidence for mitral stenosis. There was no significant mitral valvular regurgitation. LEFT ATRIUM: Left atrial size was normal. RIGHT VENTRICLE: Right ventricular size was normal. Right ventricular systolic function was normal. Right ventricular wall thickness was normal. PULMONIC VALVE: The structure of the pulmonic valve appeared to be normal. Doppler interpretation(s): The transpulmonic velocity was within the normal range. There was no pulmonic valve stenosis. There was no significant pulmonic regurgitation. TRICUSPID VALVE: The tricuspid valve structure was normal. Tricuspid leaflet excursion was normal. Doppler interpretation(s): The transtricuspid velocity was within the normal range. There was no evidence for tricuspid stenosis. There was mild tricuspid valvular regurgitation. PULMONARY ARTERY: The pulmonary artery was normal size. Doppler interpretation(s): The estimated pulmonary artery systolic pressure was within the normal range. Estimated peak pulmonary artery systolic pressure could not be definitively determined, but appeared to be 30 mmHg. RIGHT ATRIUM: Right atrial size was normal. SYSTEMIC VEINS: The inferior vena cava was normal. PERICARDIUM: There was no pericardial effusion. The pericardium was normal in appearance. Contrast echo results: No intracardiac shunt was detected by contrast study with agitated saline. Prepared and Electronically Authenticated Alejandro Reed MD Confirmed May 25, 2008 17:12:46 Procedure Note Provider, Historical - 05/25/[address] [address]: [email or web address] [email or web address] Echocardiogram Patient: Chuck Don Study ID: ADULT ECHO FULL Gender: M : 1965 Age: 42 years Race: 1 Room: Bed: Height: Study Date: May 25, 2008 Patient status: Inpatient Weight: Access. #: [id number] POC: Ordering: Richard Consulting: FranklynHYALCON Attending MD: Errol Admitting MD: Richard Indications and History: INDICATIONS: Evaluate for suspected cardiac source of embolism. HISTORY: Recent transient ischemic attack. Procedure data: PROCEDURE INFORMATION: A transthoracic complete 2D study was performed. Additional evaluation included M-mode, complete spectral Doppler, and color Doppler. Study Conclusions: SUMMARY: - Overall left ventricular systolic function was normal. Leftventricular ejection fraction was estimated to be 60 %. - Left atrial size was normal. - Right ventricular size was normal. Right ventricular systolicfunction was normal. - Estimated peak pulmonary artery systolic pressure could not be definitively determined, but appeared to be 30 mmHg. - No intracardiac shunt was detected by contrast study with agitated saline. - There were no valvular abnormalities. Doppler examination was normal. Cardiac anatomy: LEFT VENTRICLE: Left ventricular size was normal. Overall left ventricular systolic function was normal. Left ventricular ejection fraction was estimated dann 60 %. There were no left ventricular regional wall motion abnormalities. Left ventricular wall thickness was normal. Doppler interpretation(s): Diastolic dysfunction stage 2, psuedonormal pattern. AORTIC VALVE: The aortic valve was trileaflet. Aortic valve thickness was normal.There was normal aortic valve leaflet excursion. Doppler interpretation(s): Transaortic velocity was within the normal range. There was no evidencefor aortic valve stenosis. There was no significant aortic valvular regurgitation. AORTA: The aortic root was normal in size. MITRAL VALVE: Mitral valve structure was normal. There was normal mitral valve leaflet excursion. Doppler interpretation(s): The transmitral velocity waswithin the normal range. There was no evidence for mitral stenosis. There wasno significant mitral valvular regurgitation. LEFT ATRIUM: Left atrial size was normal. RIGHT VENTRICLE: Right ventricular size was normal. Right ventricular systolic functionwas normal. Right ventricular wall thickness was normal. PULMONIC VALVE: The structure of the pulmonic valve appeared to be normal. Doppler interpretation(s): The transpulmonic velocity was within the normalrange. There was no pulmonic valve stenosis. There was no significant pulmonic regurgitation. TRICUSPID VALVE: The tricuspid valve structure was normal. Tricuspid leaflet excursionwas normal. Doppler interpretation(s): The transtricuspid velocity waswithin the normal range. There was no evidence for tricuspid stenosis. Therewas mild tricuspid valvular regurgitation. PULMONARY ARTERY: The pulmonary artery was normal size. Doppler interpretation(s): The estimated pulmonary artery systolic pressure was within the normalrange. Estimated peak pulmonary artery systolic pressure could not bedefinitively determined, but appeared to be 30 mmHg. RIGHT ATRIUM: Right atrial size was normal. SYSTEMIC VEINS: The inferior vena cava was normal. PERICARDIUM: There was no pericardial effusion. The pericardium was normal in appearance. Contrast echo results: No intracardiac shunt was detected by contrast study with agitatedsaline. Prepared and Electronically Authenticated Alejandro Reed MD Confirmed May 25, 2008 17:12:46 Result [facility] Viviana Small MD US ORDERABLES Final Result Performing Organization Address [facility] Phone Number INTERFACE SYSTEM Refer to clinic/hospital department * TROPONIN (05/25/2008 4:00 PM SENSOR TECHNICIAN) TROPONIN T <0.01 <=0.03 ng/mL [facility] TROPONIN T INTERP Negative [facility] Blood specimen (specimen) 05/25/2008 4:00 PM SENSOR TECHNICIAN 05/25/2008 4:07 PM SENSOR TECHNICIAN Narrative INTERFACE SYSTEM - 05/25/2008 4:32 PM SENSOR TECHNICIAN x 2 times. Merry Najera MD CHEMISTRY ORDERABLES Edited Performing Organization Address [facility] Phone Number INTERFACE SYSTEM Refer to clinic/hospital department [facility] CLIA# [id number] [address] [place] [address] * TROPONIN (05/25/2008 11:35 AM SENSOR TECHNICIAN) TROPONIN T <0.01 <=0.03 ng/mL [facility] TROPONIN T INTERP Negative [facility] Blood specimen (specimen) 05/25/2008 11:35 AM SENSOR TECHNICIAN 05/25/2008 11:44 AM SENSOR TECHNICIAN Narrative INTERFACE SYSTEM - 05/25/2008 12:14 PM SENSOR TECHNICIAN x 2 times. Merry Najera MD CHEMISTRY ORDERABLES Edited Performing Organization Address [facility] de Phone Number INTERFACE SYSTEM Refer to clinic/hospital department [facility] CLIA# [id number] [address] [place] [address] * URINE CULTURE (05/25/2008 9:45 AM SENSOR TECHNICIAN) PRELIMINARY REPORT Pending [facility] FINAL REPORT No growth 24 hours [facility] 05/25/2008 9:45 AM SENSOR TECHNICIAN 05/25/2008 10:58 AM SENSOR TECHNICIAN Aleyda Hawk MD MICROBIOLOGY - GENERAL ORDE RABLES Final Result Performing Organization Address City/[facility] de Phone Number INTERFACE SYSTEM Refer to clinic/hospital department [facility] CLIA# [id number] [address] [place] [address] * URINALYSIS WITH MICROSCOPIC (05/25/2008 9:45 AM SENSOR TECHNICIAN) LEUKOCYTE ESTERASE UA Negative Negative [facility] RBC UA 1 0 - 3 /HPF [facility] SPECIFIC GRAVITY UA 1.009 1.001 - 1.035 [facility] GLUCOSE UA Negative Negative [facility] BLOOD UA Negative Negative [facility] COLOR UA Pale Yellow [facility] NITRITE UA Negative Negative [facility] UROBILINOGEN UA <1 <=1 mg/dL [facility] PH UA 6.5 5.0 - 8.0 [facility] WBC UA <1 0 - 3 /HPF [facility] KETONES UA Negative Negative [facility] CLARITY UA Clear Clear [facility] BILIRUBIN UA Negative Negative [facility] PROTEIN UA Negative Negative [facility] 05/25/2008 9:45 AM SENSOR TECHNICIAN 05/25/2008 9:51 AM SENSOR TECHNICIAN us Aleyda Hawk MD URINE ORDERABLES Final Resu lt Performing Organization Address City/[facility]/ZIP Co de Phone Number INTERFACE SYSTEM Refer to clinic/hospital department [facility] CLIA# [id number] [address] [place] [address] * BLOOD CULTURE (05/25/2008 6:49 AM SENSOR TECHNICIAN) [facility] PRELIMINARY REPORT No growth to date. Culture in progress [facility] FINAL REPORT No growth 5 days [facility] Blood specimen (specimen) 05/25/2008 6:49 AM SENSOR TECHNICIAN 05/25/2008 7:25 AM SENSOR TECHNICIAN Viviana Small MD MICROBIOLOGY - GENERAL ORDERA BLES Final Result Performing Organization Address [facility] Phone Number INTERFACE SYSTEM Refer to clinic/hospital department [facility] CLIA# [id number] [address] [place] [address] * BLOOD CULTURE (05/25/2008 6:37 AM SENSOR TECHNICIAN) [facility] PRELIMINARY REPORT No growth to date. Culture in progress [facility] FINAL REPORT No growth 5 days [facility] Blood specimen (specimen) 05/25/2008 6:37 AM SENSOR TECHNICIAN 05/25/2008 7:25 AM SENSOR TECHNICIAN Narrative INTERFACE SYSTEM - 05/30/2008 11:10 AM SENSOR TECHNICIAN 2 sets Viviana Small MD MICROBIOLOGY - GENERAL ORDERA BLES Final Result Performing Organization Address [facility] Phone Number INTERFACE SYSTEM Refer to clinic/hospital department [facility] CLIA# [id number] [address] [place] [address] * (ABNORMAL) BASIC METABOLIC PANEL (05/25/2008 4:50 AM SENSOR TECHNICIAN) [facility] POTASSIUM 4.0 3.5 - 4.9 mmol/L [facility] BUN 15 6 - 20 mg/dL [facility] CHLORIDE 99 96 - 108 mmol/L [facility] GLUCOSE 97 65 - 99 mg/dL [facility] SODIUM 133(L) 135 - 145 mmol/L [facility] CALCIUM 9.0 8.6 - 10.2 mg/dL [facility] CO2 26 22 - 30 mmol/L [facility] CREATININE 0.81 0.67 - 1.17 mg/dL [facility] GFR, >60 >=60 mL/min/1. 7 sq meter [facility] GFR >60 >=60 mL/min/1. 7 sq meter [facility] Comment: Modification of Diet in Renal Disease (MDRD) study formula. Estimated GFR rate interpretative information for both Americans and non- Americans is available on the [facility] Intranet at: [email or web address] Select: Lab Policies and Procedures Select: Reference Ranges - GFR Blood specimen (specimen) 05/25/2008 4:50 AM SENSOR TECHNICIAN 05/25/2008 5:48 AM SENSOR TECHNICIAN us Viviana Small MD CHEMISTRY ORDERABLES Edited INTERFACE SYSTEM Refer to clinic/hospital department [facility] CLIA# [id number] [address] [facility] [place] [address] * (ABNORMAL) CBC WITH DIFFERENTIAL (05/25/2008 4:50 AM SENSOR TECHNICIAN) MCV 88.7 82.0 - 99.0 fL [facility] PLATELETS 250 140 - 350 K/uL [facility] HEMOGLOBIN 12.6(L) 13.6 - 16.5 g/dL [facility] RDW 13.1 11.5 - 14.5 % [facility] WBC 9.1 4.0 - 9.8 K/uL [facility] MCH 29.7 27.2 - 32.6 pg [facility] MPV 11.7 9.3 - 12.4 fL [facility] HEMATOCRIT 37.6(L) 40.0 - 48.0 % [facility] RDW-STDEV 42.1 37.1 - 48.7 fL [facility] RBC 4.24(L) 4.50 - 5.40 M/uL [facility] MCHC 33.5 31.5 - 35.5 % [facility] NEUTROPHILS 83(H) 45 - 70 % [facility] NEUTROPHIL ABSOLUTE 7.55(H) 1.90 - 7.00 K/uL [facility] EOSINOPHILS 0 0 - 7 % [facility] EOSINOPHIL ABSOLUTE 0.00 0.00 - 0.70 K/uL [facility] LYMPHOCYTES 13(L) 16 - 45 % [facility] LYMPHOCYTE ABSOLUTE 1.21 0.70 - 4.50 K/uL [facility] BASOPHILS 0 0 - 2 % [facility] BASOPHILS ABSOLUTE 0.00 0.00 - 0.20 K/uL [facility] MONOCYTES 4 3 - 13 % [facility] MONOCYTE ABSOLUTE 0.35 0.10 - 1.30 K/uL [facility] Blood specimen (specimen) 05/25/2008 4:50 AM SENSOR TECHNICIAN 05/25/2008 5:48 AM SENSOR TECHNICIAN us Viviana Small MD HEMATOLOGY ORDERABLES Edited INTERFACE SYSTEM Refer to clinic/hospital department [facility] CLIA# [id number] [address] [facility] [place] [address] * CT HEAD WO CONTRAST (05/24/2008 10:02 PM SENSOR TECHNICIAN) Anatomical Region Laterality Modality Head Other 05/24/2008 10:0 2 PM SENSOR TECHNICIAN Narrative 05/24/2008 11:05 PM SENSOR TECHNICIAN [place] [address] [place], [place] [address] Admit Date: 05/24/2008 CHUCK DON Sex: M Admit Prov: ER, AUTHORIZED P Date: 1965 Primary Care Prov: KARTHIKEYAN MOLINA CMRN: [id number] Room: [facility]: [id number] IMAGING SERVICES Ordering Prov: N/A Accession Number: [id number] Interpretation CT OF THE HEAD WITHOUT CONTRAST 05/24/2008 History: Headache, dizzy. Findings: The head is scanned by 5 mm intervals without the use of intravenous contrast. There is no intracranial hemorrhage. There is no mass effect or midline shift. The ventricles are normal. The parenchymal structures have a normal, symmetrical appearance. Paranasal sinuses are clear. Opinion: Negative exam. . Dictated by: NOA THOMPSON 05/24/2008 22:25 Electronically signed by: NOA THOMPSON 05/24/2008 23:04 Transcribed: 05/24/2008 22:36 SJ Procedure Note Noa Thompson MD - 05/24/2008 [place] [address] [place], [place] [address] Admit Date: 05/24/2008 CHUCK DON Sex: M Admit Prov: ER, AUTHORIZED P Date: 1965 Primary Care Prov: KARTHIKEYAN MOLINA CMRN: [id number] [id number] [facility] Ordering Prov: N/A Interpretation CT OF THE HEAD WITHOUT CONTRAST 05/24/2008 History: Headache, dizzy. Findings: The head is scanned by 5 mm intervals without the use of intravenous contrast. There is no intracranial hemorrhage. There isno mass effect or midline shift. The ventricles are normal. The parenchymal structures have a normal, symmetrical appearance. Paranasal sinusesare clear. Opinion: Negative exam. . Dictated by: NOA THOMPSON 05/24/2008 22:25 Electronically signed by: NOA THOMPSON 05/24/2008 23:04 Transcribed: 05/24/2008 22:36 SJ Artem [address] DO [address] ORDERABLES Final Result * XR CHEST PA OR AP (05/24/2008 9:34 PM SENSOR TECHNICIAN) Anatomical Region Laterality Modality Chest Other 05/24/2008 9:34 PM SENSOR TECHNICIAN Narrative 05/24/2008 11:05 PM SENSOR TECHNICIAN [place] [address] [place], [place] [address] Admit Date: 05/24/2008 CHUCK DON Sex: M Admit Prov: ER, AUTHORIZED P Date: 1965 Primary Care Prov: KARTHIKEYAN MOLINA CMRN: [id number] Room: -A N: [address] [place] [address] IMAGING SERVICES Ordering Prov: N/A Accession Number: [id number] Interpretation PORTABLE AP UPRIGHT CHEST 05/24/2008 AT 2140 HOURS History: Chest pain. Findings: The lung anderson are clear and well aerated without significant infiltrate. There is no pneumothorax or pleural effusion. The heart size is normal. No prior chest exams are available for comparison. Impression: No acute disease. . Dictated by: NOA THOMPSON 05/24/2008 21:43 Electronically signed by: NOA THOMPSON 05/24/2008 23:04 Transcribed: 05/24/2008 21:54 SJ Procedure Note Noa Thompson MD - 05/24/2008 [id number] [place], [place] [address] Admit Date: 05/24/2008 CHUCK DON Sex: M Admit Prov: ER, AUTHORIZED P Date: 1965 Primary Care Prov: KARTHIKEYAN MOLINA CMRN: [id number] Room: ER-A SSN: [address] [place] [address] IMAGING SERVICES Ordering Prov: N/A Interpretation PORTABLE AP UPRIGHT CHEST 05/24/2008 AT 2140 HOURS History: Chest pain. Findings: The lung anderson are clear and well aerated withoutsignificant infiltrate. There is no pneumothorax or pleural effusion. The heartsize is normal. No prior chest exams are available for comparison. Impression: No acute disease. . Dictated by: NOA THOMPSON 05/24/2008 21:43 Electronically signed by: ONA THOMPSON 05/24/2008 23:04 Transcribed: 05/24/2008 21:54 SJ Artem Najera DO DIAGNOSTIC IMAGING ORDERABLES Final Result * (ABNORMAL) CBC WITH DIFFERENTIAL (05/24/2008 9:32 PM SENSOR TECHNICIAN) MCV 89.3 82.0 - 99.0 fL [facility] PLATELETS 292 140 - 350 K/uL [facility] HEMOGLOBIN 14.3 13.6 - 16.5 g/dL [facility] RDW 13.1 11.5 - 14.5 % [facility] WBC 21.5(H) 4.0 - 9.8 K/uL [facility] MCH 30.6 27.2 - 32.6 pg [facility] MPV 11.7 9.3 - 12.4 fL [facility] HEMATOCRIT 41.7 40.0 - 48.0 % [facility] RDW-STDEV 42.7 37.1 - 48.7 fL [facility] RBC 4.67 4.50 - 5.40 M/uL [facility] MCHC 34.3 31.5 - 35.5 % [facility] LYMPHOCYTES 4(L) 16 - 45 % [facility] LYMPHOCYTE ABSOLUTE 0.95 0.70 - 4.50 K/uL [facility] BASOPHILS 0 0 - 2 % [facility] BASOPHILS ABSOLUTE 0.01 0.00 - 0.20 K/uL [facility] MONOCYTES 4 3 - 13 % [facility] MONOCYTE ABSOLUTE 0.77 0.10 - 1.30 K/uL [facility] NEUTROPHILS 92(H) 45 - 70 % [facility] NEUTROPHIL ABSOLUTE 19.71(H) 1.90 - 7.00 K/uL [facility] EOSINOPHILS 0 0 - 7 % [facility] EOSINOPHIL ABSOLUTE 0.01 0.00 - 0.70 K/uL [facility] Blood specimen (specimen) 05/24/2008 9:32 PM SENSOR TECHNICIAN 05/24/2008 9:47 PM SENSOR TECHNICIAN Artem Najera DO HEMATOLOGY ORDERABLES Edited Performing Organization Address City/[facility]/ZIP Co de Phone Number INTERFACE SYSTEM Refer to clinic/hospital department [facility] CLIA# [id number] [address] [place] [address] * TROPONIN (W/REFLEX CKMB/CK) (05/24/2008 9:32 PM SENSOR TECHNICIAN) TROPONIN T <0.01 <=0.03 ng/mL [facility] TROPONIN T INTERP Negative [facility] Blood specimen (specimen) 05/24/2008 9:32 PM SENSOR TECHNICIAN 05/24/2008 9:47 PM SENSOR TECHNICIAN Artem Najera DO CHEMISTRY ORDERABLES Edited Performing Organization Address City/[facility]/ZIP Co de Phone Number INTERFACE SYSTEM Refer to clinic/hospital department [facility] CLIA# [id number] [address] [place] [address] * (ABNORMAL) COMPREHENSIVE METABOLIC PANEL (05/24/2008 9:32 PM SENSOR TECHNICIAN) ALKALINE PHOSPHATASE 70 40 - 129 U/L [facility] AST 23 12 - 38 U/L [facility] BUN 19 6 - 20 mg/dL [facility] CALCIUM 9.6 8.6 - 10.2 mg/dL [facility] CHLORIDE 103 96 - 108 mmol/L [facility] ALBUMIN 4.8 3.4 - 4.8 g/dL [facility] CREATININE 0.94 0.67 - 1.17 mg/dL [facility] SODIUM 139 135 - 145 mmol/L [facility] ALT 31 0 - 41 U/L [facility] BILIRUBIN TOTAL 0.2 0.2 - 1.0 mg/dL [facility] CO2 24 22 - 30 mmol/L [facility] TOTAL PROTEIN 7.2 6.3 - 8.6 g/dL [facility] POTASSIUM 3.9 3.5 - 4.9 mmol/L [facility] GLUCOSE 170(H) 65 - 99 mg/dL [facility] GFR, >60 >=60 mL/min/1. 7 sq meter [facility] GFR >60 >=60 mL/min/1. 7 sq meter [facility] Comment: Modification of Diet in Renal Disease (MDRD) study formula. Estimated GFR rate interpretative information for both Americans and non- Americans is available on the [facility] Intranet at: [email or web address] Select: Lab Policies and Procedures Select: Reference Ranges - GFR Blood specimen (specimen) 05/24/2008 9:32 PM SENSOR TECHNICIAN 05/24/2008 9:47 PM SENSOR TECHNICIAN Artem Najera DO CHEMISTRY ORDERABLES Edited INTERFACE SYSTEM Refer to clinic/hospital department [facility] CLIA# [id number] [address] [place] [address] * (ABNORMAL) POC GLUCOSE (05/24/2008 6:17 PM SENSOR TECHNICIAN) GLUCOSE POC 156(H) 65 - 99 mg/dL [facility] Venous blood specimen (specimen) 05/24/2008 6:17 PM SENSOR TECHNICIAN 05/24/2008 6:17 PM SENSOR TECHNICIAN us Viviana Small MD POINT OF CARE TESTING Final R esult INTERFACE SYSTEM Refer to clinic/hospital department [facility] CLIA# [id number] [address] [place] [address] documented in this encounter Visit Diagnoses Diagnosis Dizziness and giddiness documented in this encounter Care Teams Market Development Trainer Relationship Specialty Start Date End Date Karthikeyan Molina MD [address] [place] [phone] PCP - General 08/24/03 documented as of this encounter
--- OUTSIDE RECORDS SUMMARY | 2025-01-11 09:45 | XMS_ITS | Encounter Summary ---
Author Organization [facility] Address 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
--- OUTSIDE RECORDS SUMMARY | 2025-01-11 09:46 | XMS_ITS | Patient Health Record ---
Author Organization [facility] Address [address] [place] [address] Care Team Providers Care Licensed Therapist Name Role Phone Elif Leanne Primary Care Provider Unavailab Mason Nguyen Unavailable [phone] Gertrude Arana Unavailable [phone] ALLERGIES No Known Allergies RESULTS Component Value Reference Range Notes MRI : Cervical without Contr ast Reviewed date:06/01/2024 03:58:24 PM Interpretation: Performing Lab: Notes/Report: X ray : Cervical Spine 7 vie ws, AP, Lateral, Swimmers, Obliques, Flexion and Extension Reviewed date:06/01/2024 02:17:14 PM Interpretation:135 Performing Lab: Notes/Report: 135 REASON FOR REFERRAL Reason Bilateral Carpal [place] Diagnosis 1 Carpal tunnel syndro me (354.0) Referral Organization [facility] Referring Provider First Name Mason Referring Provider Last Name Cristin Referring Provider Speciality Orthopedic Surgery Referred Provider Bryant Gandhi Referred Provider Specialty Plastic and Reconstructive Surgery Referral Priority Routine MEDICATIONS Medication SIG (Take, Route, Fr equency, Duration) Notes Start Date End Date Status Vitamin D3 Not-Takin g Naproxen 500 MG take 1 tablet Orally every 12 hrs for 90 days Not-Taking Lisinopril Active Magnesium Not-Taking tiZANidine HCl 4 MG 1 tablet as needed m ay cause drowsiness Orally Three times a day for 30 days 05/05/2023 Not-Taki ng predniSONE 10 MG 1 tablet Orally bid for 10 days 04/23/2024 Not-Taking Cholesterol Fighter Active SOCIAL HISTORY Tobacco Use: Social History Observation Description Date Details (start date - stop date) Never Smoker NA - NA Sex Assigned At : Social History Observation Description Sex Assigned At Unknown Tobacco Use/Smoking Question Answer Notes Are you a nonsmoker Alcohol Screen Question Answer Notes Did you have a drink contain ing alcohol in the past year? Yes How often did you have a dri nk containing alcohol in the past year? 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 Lumbosacral spondylosis without myelopathy (25375403) Problem Spondylolisthesis (M43.10) Active confirmed Spondylolisthes is (683186976) Problem Spondylolisthesis, lumbar region (M43.16) Active confirmed Acquired spondylolisthesis (752765886) Problem DDD (degenerative disc disease), lumbar (M51.36) Active confirmed Degenerative disc disease (06976139) Problem DDD (degenerative disc disease), cervical (M50.30) Active confirmed Cervical d isc disorder (740721607) Problem Other cervical disc degeneration at C4-C5 level (M50.321) Active confirmed Degeneration of cervical intervertebral disc (90071485) VITAL SIGNS Height 70 in 06/01/2024 Weight 210 lbs 06/01/2024 BMI 30.13 kg/m2 06/01/2024 PROCEDURES Procedure Date Ordered Date Performed Result Body Sit e SENSE NERVE CONDUCTION TEST - Consultative EDX & Evaluate Symptoms 06/01/2024 06/01/2024 N/A Encounters Encounter Location Date Provider Diagnosis [facility] [address] [address] 04/28/2024 Gertrude Arana [facility] [address] [address] 06/01/2024 Mason Amaral Cervicalgia M54.2 and Cervical radiculitis M54.12 [facility] [address] [address] 04/23/2024 Mason Amaral [facility] [address] [address] 06/02/2024 Mason Amaral [facility] [address] [place] [address] 06/15/2024 Mason Amaral [facility] [address] [place] [address] 08/16/2024 Mason Amaral [facility] [address] [place] [address] 08/20/2024 Mason Amaral [facility] [address] [place] [address] 09/07/2024 Mason Amaral [facility] [address] [place] [address] 09/15/2024 Mason Amaral [facility] [address] [place] [address] 09/24/2024 Mason Amaral ASSESSMENTS Encounter Date Diagnosis Assessment Notes Treatment Notes Treatment Clinical Notes 06/01/2024 Cervicalgia (ICD-10 - M54.2) 06/01/2024 Cervical radiculitis (ICD-10 - M54.12) PLAN OF TREATMENT Pending Test Test Name Order Date Lumbar Decompression 02/09/2020 Insurance Providers Payer Name Payer Address Payer Phone Subscriber Number Group Number Insured Name Patient Relationship to Insured Coverage Start Date Coverage End Date Abdoul [facility] [address] Health Claims Dept [place] [id number] Jamar Alvares Self - patient is the insured MEDICAL (GENERAL) HISTORY Medical History History ICD Code Hypertension Osteoarthritis Neck/Back Pain Numbness in hands Herniated disc Denies h/o emotional/psychiatric disorde r Surgical History Surgery Date(Month/Year) C5-C7 ACDF - Dr. Rose 2013 L4-5 Laminectomy - Dr. Amaral 2019 Bilateral Elbows Umbilical Hernia Hospitalization History Reason Date(Month/Year) As per above
== END 2025-01-11 09:22 | disposition home or self-care (01) ==
PROVIDERS: PCP Physician Assistant Medical; Visit Provider Internal Medicine Cardiovascular Disease
DX: Z01.810 Encounter for preprocedural cardiovascular examination (principal)
CPT/HCPCS: 78452; 93017; A9502